=== PATIENT | female | born 1965 | race African-American/Black ===

== ENCOUNTER 2018-05-17 10:17 | Emergency (ER) | payer MEDICAID ==
[~2018-05-17] VITALS: Ht 167.6 cm; Wt 80.0 kg
[2018-05-17] MEDS ORDERED: OMEP10CA4 PO (10:22)
[2018-05-17] MEDS ORDERED: HYDR5POW MC (10:22)
[2018-05-17] MEDS ORDERED: HYDR-3282 PO (10:22)
[2018-05-17] MEDS ORDERED: KETOROLAC 60MG/2ML VIAL IM ONE (11:30)
[2018-05-17 12:38] VITALS: BP 116/86
== END 2018-05-17 13:00 | disposition home or self-care (01) ==
LOC: ER 10:27
DX: M25.522 Pain in left elbow (principal); M25.552 Pain in left hip; M79.652 Pain in left thigh; Z79.899 Other long term (current) drug therapy; V03.00XA Pedestrian on foot injured in collision with car, pick-up truck or van in nontraffic accident, initial encounter; Y93.01 Activity, walking, marching and hiking; Y92.524 Gas station as the place of occurrence of the external cause; Y99.8 Other external cause status
CPT/HCPCS: 72170; 73080; 73090; 73552; 81025; 96372; 99284; J1885